=== PATIENT | female | born 1980 | race Caucasian/White ===

== ENCOUNTER 2016-05-12 15:55 | Emergency (ER) | payer OTHER ==
[~2016-05-12] VITALS: Ht 167.6 cm; Wt 95.3 kg
[~2016-05-12 15:55] MED LIST: Inhaler; azo
[2016-05-12 16:16] VITALS: BP 126/82
--- NOTE | 2016-05-12 19:36 | NUR ---
PT TAKEN TO OF
--- NOTE | 2016-05-12 19:47 | NUR ---
35 Y/O HERE C/O DISCONFORT AND REDNESS TO L EYE X 2 DAYS. DERNIES ANY INJURY TO AFFECTED EYE. NO DISCHARGE PRESENT ONLY REDNESS, DENIES ANY PAIN. ER MD AWARED OF IT.
--- NOTE | 2016-05-12 20:09 | NUR ---
Dr. Crawford evaluating patient
[2016-05-12 20:23] VITALS: BP 118/66
--- NOTE | 2016-05-12 20:23 | NUR ---
Patient discharged with v/s stable. Written and verbal after care instructions given and explained. Patient alert, oriented and verbalized understanding of instructions. Ambulatory with steady gait. All questions addressed prior to discharge. ID band removed. Patient advised to follow up with PMD. Rx of VISINE ADVANCED RELIEF OPHTHALMIC SOLUTION given. Patient educated on indication of medication including possible reaction and side effects. Opportunity to ask questions provided and answered.
== END 2016-05-12 20:23 | disposition home or self-care (01) ==
LOC: MED 15:55
DX: H11.31 Conjunctival hemorrhage, right eye (principal); J45.909 Unspecified asthma, uncomplicated

== ENCOUNTER 2016-06-17 23:46 | Emergency (ER) | payer OTHER ==
[~2016-06-17] VITALS: Ht 167.6 cm; Wt 99.8 kg
[2016-06-17 23:48] VITALS: BP 139/81
--- NOTE | 2016-06-17 23:58 | NUR ---
Patient ambulated to bed 02.
--- NOTE | 2016-06-17 23:59 | NUR ---
PATIENT PRESENTS TO ED WITH HIGH BP X 1 DAY WITH C/O DIZZINESS . PT DENIES N/V/D; SKIN IS PINK/WARM/DRY; AAOX4 WITH EVEN AND STEADY GAIT; LUNGS CLEAR BL; HR EVEN AND REGULAR; PT DENIES ANY FEVER, CP, SOB, OR COUGH AT THIS TIME; PATIENT STATES PAIN OF 10/10 AT THIS TIME; VSS; PATIENT POSITIONED FOR COMFORT; HOB ELEVATED; BEDRAILS UP X2; BED DOWN. ER MD MADE AWARE OF PT STATUS.
--- NOTE | 2016-06-18 | NUR ---
Dr. White evaluating patient at bedside.
[2016-06-18] MEDS ORDERED: NACL 0.9% 1,000 ML IV SCH (00:04)
[2016-06-18] MEDS ORDERED: ONDANSETRON 4 MG/2 ML VIAL IVP ONE (00:05)
[2016-06-18] MEDS ORDERED: ACETAMINOPHEN EXTRA STRENGTH 500 MG TAB PO ONE (00:05)
--- NOTE | 2016-06-18 00:12 | NUR ---
LAB at bedside.
--- NOTE | 2016-06-18 01:19 | NUR ---
IV removed, catheter intact and site benign. Applied folded 4x4 gauze and tape to stop bleeding.
[2016-06-18 01:20] VITALS: BP 124/79
--- NOTE | 2016-06-18 01:20 | NUR ---
Patient discharged with v/s stable. Written and verbal after care instructions given and explained. Patient alert, oriented and verbalized understanding of instructions. Ambulatory with steady gait. All questions addressed prior to discharge. ID band removed. Patient advised to follow up with PMD. Rx of KEFLEX 500MG AND TYLENOL 325MG given. Patient educated on indication of medication including possible reaction and side effects. Opportunity to ask questions provided and answered.
== END 2016-06-18 01:20 | disposition home or self-care (01) ==
LOC: MED 23:46
DX: G44.209 Tension-type headache, unspecified, not intractable (principal); F43.9 Reaction to severe stress, unspecified; N39.0 Urinary tract infection, site not specified; I10 Essential (primary) hypertension; J45.909 Unspecified asthma, uncomplicated
CPT/HCPCS: 36415; 80053; 81001; 81025; 82150; 83690; 85025; 87086; 96361; 96374; 99284; J2405; J7030

== ENCOUNTER 2017-02-19 22:36 | Emergency (ER) | payer OTHER ==
[~2017-02-19] VITALS: Ht 165.1 cm; Wt 78.5 kg
[2017-02-19 22:44] VITALS: BP 119/81
--- NOTE | 2017-02-19 22:49 | NUR ---
AMBULATED TO ER BED 3
--- NOTE | 2017-02-19 23:00 | NUR ---
36Y/F PRESENTS TO ER C/O URINARY HESITANCY. PMH FATTY LIVER, NKA. PT STATES SHE IS HAVING DIFFICULTY STARTING URINATION AND ONLY URINATES "A LITTLE BIT". PT DENIES PAIN, BURNING, BLOOD IN URINE, OR URGENCY. PT STATES SYMPTOMS STARTED TODAY. ABDOMEN IS ROUND, SOFT, TENDER ON PALPATION, BS ACTIVE X4. LBM WAS TODAY. PT IS IN BED, ER MD NOTIFED OF PT STATUS, COMFORT NEEDS MET AT THIS TIME. VSS, AA&O X4.
--- NOTE | 2017-02-19 23:02 | NUR ---
PT BEING EVALUATED BY DR. PARKER.
[2017-02-19] MEDS ORDERED: NACL 0.9% 1,000 ML IV ONE (23:05)
--- NOTE | 2017-02-19 23:15 | NUR ---
BLADDER SCAN AT BEDSIDE. LARGEST VOLUME NOTED 48 ML. PT TOLERATED WELL.
[2017-02-19 23:49] LABS: BASOPHILS # (AUTO) 0.4 K/uL (0.00-0.22); EOSINOPHILS # (AUTO) 0.3 K/uL (0-0.4); EOSINOPHILS % (AUTO) 3.3 % (0.0-4.0); HEMATOCRIT 39.4 % (36-48); HEMOGLOBIN 12.8 g/dL (12.0-16.0); LYMPHOCYTES # (AUTO) 2.6 K/uL (2.5-16.5); LYMPHOCYTES % (AUTO) 25.6 % (20.5-51.1); MEAN CORPUSCULAR HEMOGLOBIN 28 pg (27-31); MEAN CORPUSCULAR HGB CONC 33 g/dL (33-37); MEAN CORPUSCULAR VOLUME 86 fL (80-94); MONOCYTES # (AUTO) 0.9 K/uL (0.8-1.0); MONOCYTES % (AUTO) 9.3 % (1.7-9.3); NEUTROPHILS # (AUTO) 5.9 K/uL (1.8-7.7); NEUTROPHILS % (AUTO) 57.8 % (42.2-75.2); PLATELET COUNT (AUTO) 271 K/uL (140-450); RED BLOOD CELL COUNT(AUTO) 4.57 MIL/uL (4.20-5.40); RED CELL DISTRIBUTION WIDTH 13.3 % (11.6-13.7); WHITE BLOOD COUNT (AUTO) 10.1 K/uL (4.8-10.8)
[2017-02-19 23:51] LABS: APPEARANCE,URINE SL CLOUDY (CLEAR); BILIRUBIN,URINE NEGATIVE (NEGATIVE); BLOOD, URINE NEGATIVE (NEGATIVE); COLOR,URINE YELLOW (YELLOW); LEUKOCYTE ESTERASE ,URINE NEGATIVE (NEGATIVE); NITRITE, URINE NEGATIVE (NEGATIVE); UGLUCOSE NEGATIVE (NEGATIVE)
[2017-02-19 23:58] LABS: ANION GAP 13.5 (8-16); CARBON DIOXIDE 26.8 mmol/L (21-32); CREATININE 1.1 mg/dL (0.6-1.3); POTASSIUM 3.3 mmol/L (3.5-5.1)
[2017-02-20 00:01] LABS: RBC,URINE 0-5 (RARE) /HPF (0-5); WBC,URINE 0-5 (RARE) /HPF (0-5)
[2017-02-20 00:04] LABS: ALBUMIN 3.8 g/dL (3.4-5.0); TOTAL BILIRUBIN 0.2 mg/dL (0.0-1.0)
--- NOTE | 2017-02-20 00:40 | NUR ---
Patient discharged with v/s stable. Written and verbal after care instructions given and explained. Patient verbalized understanding. Ambulatory with steady gait. All questions addressed prior to discharge. Advised to follow up with PMD.
[2017-02-20 00:41] VITALS: BP 114/73
== END 2017-02-20 00:35 | disposition home or self-care (01) ==
LOC: MED 22:36
DX: E86.0 Dehydration (principal); J45.909 Unspecified asthma, uncomplicated; I10 Essential (primary) hypertension
CPT/HCPCS: 36415; 80053; 81001; 81025; 85025; 96360; 99285; J7030

== ENCOUNTER 2017-06-01 09:37 | Emergency (ER) | payer OTHER ==
[~2017-06-01] VITALS: Ht 165.1 cm; Wt 79.8 kg
[2017-06-01 10:52] VITALS: BP 136/93
--- NOTE | 2017-06-01 10:58 | NUR ---
AFTER PROVIDING URINE SAMPLE PT AMBULATES BACK TO THE LOBBY WITH SON
--- NOTE | 2017-06-01 12:16 | NUR ---
PT COMES TO ER WITH C/O LOWER ABD PAIN WITH NAUSEA AND GENERALIZED MALAISE. REPORTS HAVING AHYSTERECTOMY MANY YEARS AGO AND SUDDENLY HAD A MILD PERIOD THISD LAST WEEK, ONLY VAG BLEEDING WITH WIPING. DENIES ANY FEVERS/DYSURIA. URINE COLLECTED, WAIITNG FOR ER MD GRIFFIN. ABD SOFT, DENIES CONSTIPATION.
--- NOTE | 2017-06-01 12:55 | NUR ---
DR BORDEN AT BEDSIDE FOR EXAM
[2017-06-01 14:26] VITALS: BP 130/79
== END 2017-06-01 14:27 | disposition home or self-care (01) ==
LOC: MED 09:37
DX: N93.9 Abnormal uterine and vaginal bleeding, unspecified (principal); R10.9 Unspecified abdominal pain; J45.909 Unspecified asthma, uncomplicated; I10 Essential (primary) hypertension
CPT/HCPCS: 81002; 81025; 99282

== ENCOUNTER 2017-10-15 11:11 | Inpatient (IN) | payer OTHER ==
[~2017-10-15] VITALS: Ht 167.6 cm; Wt 80.7 kg
[2017-10-15 11:14] VITALS: BP 107/60
--- NOTE | 2017-10-15 11:20 | NUR ---
pt ambulates w/ steady gait to bed 12 at this time.
--- NOTE | 2017-10-15 11:23 | NUR ---
37 yo f bib self w/ c/o diarrhea, headache, gen body pain, fever x 3 days. Pt is ambulatory w/ steady gait. aaox4. gcs 15. cms intact. rr even and unlabored. lung harvey bilaterally clear. abd soft, non-tender. er md notified. pt needs met. safety precautions in place. will continue to monitor.
--- NOTE | 2017-10-15 11:25 | NUR ---
pt ambulates with steady gait to the restroom at this time abruptly w/ diarrhea complaint.
--- NOTE | 2017-10-15 11:33 | NUR ---
pt ambulates to bed 12 at this time with steady gait from the restroom.
[2017-10-15] MEDS ORDERED: NACL 0.9% 1,000 ML IV SCH ×2 (11:38→11:40)
[2017-10-15] MEDS ORDERED: metroNIDAZOLE 500 MG/NS PREMIX 100 ML IV STA (11:40)
[2017-10-15] MEDS ORDERED: GLYCOPYRROLATE 0.2 MG/ML VIAL IV ONE (11:40)
[2017-10-15] MEDS ORDERED: LEVOFLOXACIN 500 MG/D5W PREMIX 100 ML IV ONE (11:40)
[2017-10-15] MEDS ORDERED: MORPHINE SULFATE 2 MG/ML SYR IVP ONE (11:40)
[2017-10-15] MEDS ORDERED: DIPHENOXYLATE /ATROPINE 2.5 MG TAB PO ONE (11:40)
[2017-10-15] MEDS ORDERED: KETOROLAC 30 MG/ML VIAL IVP ONE (11:40)
[2017-10-15 11:58] LABS: BASOPHILS % (AUTO) 0.1 % (0.0-2.0); EOSINOPHILS % (AUTO) 0.1 % (0.0-4.0); HEMATOCRIT 32.6 % (36-48); HEMOGLOBIN 10.4 g/dL (12.0-16.0); LYMPHOCYTES # (AUTO) 0.6 K/uL (2.5-16.5); LYMPHOCYTES % (AUTO) 6.5 % (20.5-51.1); MEAN CORPUSCULAR HEMOGLOBIN 26 pg (27-31); MEAN CORPUSCULAR HGB CONC 32 g/dL (33-37); MEAN CORPUSCULAR VOLUME 82.1 fL (80-94); MONOCYTES # (AUTO) 0.7 K/uL (0.8-1.0); MONOCYTES % (AUTO) 7.3 % (1.7-9.3); NEUTROPHILS # (AUTO) 8.5 K/uL (1.8-7.7); PLATELET COUNT (AUTO) 220 K/uL (140-450); RED BLOOD CELL COUNT(AUTO) 3.97 MIL/uL (4.20-5.40); RED CELL DISTRIBUTION WIDTH 15.4 % (11.6-13.7); WHITE BLOOD COUNT (AUTO) 9.9 K/uL (4.8-10.8)
[2017-10-15 12:14] LABS: ANION GAP 9.9 (8-16); CARBON DIOXIDE 26.9 mmol/L (21-32); CREATININE 0.8 mg/dL (0.6-1.3); POTASSIUM 3.8 mmol/L (3.5-5.1)
[2017-10-15 12:19] LABS: ALBUMIN 3.3 g/dL (3.4-5.0); TOTAL BILIRUBIN 0.3 mg/dL (0.0-1.0)
--- NOTE | 2017-10-15 12:30 | NUR ---
pt to ct scan at this time via [facility].
--- NOTE | 2017-10-15 12:43 | NUR ---
pt back from ct scan at this time via [facility].
--- NOTE | 2017-10-15 12:49 | NUR ---
Reminded pt about giving a urine sample again at this time. Still unable to attain urine. Pt states that she "cannot go". Will re-evaluate.
--- NOTE | 2017-10-15 13:10 | NUR ---
PATIENT PROVIDED URINE SAMPLE.
--- NOTE | 2017-10-15 14:00 | NUR ---
Patient appears to be resting comfortably in bed. Vital Signs within normal limits. Respirations even and unlabored.
[2017-10-15] MEDS ORDERED: NACL 0.9% 1,000 ML IV ONE (14:15)
--- NOTE | 2017-10-15 15:00 | NUR ---
Patient appears to be resting comfortably in bed. Vital Signs within normal limits. Respirations even and unlabored.
[2017-10-15 15:21] LABS: APPEARANCE,URINE CLEAR (CLEAR); BILIRUBIN,URINE NEGATIVE (NEGATIVE); BLOOD, URINE NEGATIVE (NEGATIVE); COLOR,URINE YELLOW (YELLOW); LEUKOCYTE ESTERASE ,URINE NEGATIVE (NEGATIVE); NITRITE, URINE NEGATIVE (NEGATIVE); UGLUCOSE NEGATIVE (NEGATIVE)
[2017-10-15] MEDS ORDERED: ACETAMINOPHEN 325 MG TAB PO PRN (17:15)
[2017-10-15] MEDS ORDERED: ONDANSETRON 4 MG/2 ML VIAL IVP PRN (17:15)
[2017-10-15] MEDS ORDERED: MORPHINE SULFATE 2 MG/ML SYR IVP PRN (17:15)
--- NOTE | 2017-10-15 18:03 | NUR ---
Patient will be admitted to care of dr. logan. Admited to med surg. Will go to room 116. Belongings list completed. Report to gera hooker.
--- NOTE | 2017-10-15 18:07 | NUR ---
RECEIVED PT FROM ER NURSE NEVILLE, V/S TAKEN BP: 116/62, HR: 83, RR 16, TEMP: 99.1, O2SAT 100%, PAIN 7/10 PT STATES SLIGHT HEADACHE. MRSA SEND TO LAB, EXPLAINED PLAN OF CARE, UPDATED BOARD, WILL ENDORSE ADMISSION TO SECURITY AND PRIVACY CONSULTANT NURSE.
--- NOTE | 2017-10-15 19:25 | NUR ---
ENDORSED PT TO MACHINERY ERECTOR NURSE. PT STABLE.
--- NOTE | 2017-10-15 19:25 | NUR ---
RECEIVED REPORT FROM DAY SHIFT NURSE AT BEDSIDE. PT IN STABLE CONDITION. IV ACCESS IN L AC 20G/ IV PATENT AND INTACT. PT ON RA. SKIN IS INTACT. PT HAS NO C/O OF PAIN AT THIS TIME. WILL BEGIN PT ADMISSION.
[2017-10-15 19:30] VITALS: BP 117/63
[2017-10-15] MEDS: NACL 0.9% 1,000 ML IV SCH (19:51)
--- NOTE | 2017-10-15 19:52 | NUR ---
STARTED ORDERED IV FLUIDS. INFORMED PT DR REQUESTING STOOL SAMPLE. PT WILL NOTIFY NURSE WHEN SAMPLE AVAILABLE.
[2017-10-15] MEDS: metroNIDAZOLE 500 MG/NS PREMIX 100 ML IV SCH (21:38)
--- NOTE | 2017-10-15 21:38 | NUR ---
ADMINISTERED NIGHT TIME MEDICATION. PT TOLERATING WELL. PT HAS NO C/O PAIN AT THIS TIME. WILL CONTINUE TO MONITOR.
--- NOTE | 2017-10-15 23:15 | NUR ---
PT RESTING IN BED WATCHING TV. ALL NEEDS ARE MET AT THIS TIME. WILL CONTINUE TO MONITOR.
[2017-10-16] VITALS: BP 102/62
--- NOTE | 2017-10-16 01:25 | NUR ---
PT IS ASLEEP IN BED. NO S/SX OF DISTRESS. WILL CONTINUE TO MONITOR.
[2017-10-16] MEDS: NACL 0.9% 1,000 ML IV SCH ×2 (03:11→06:03)
--- NOTE | 2017-10-16 03:38 | NUR ---
NO CHANGE IN CONDITION. WILL CONTINUE TO MONITOR PT.
[2017-10-16] MEDS: metroNIDAZOLE 500 MG/NS PREMIX 100 ML IV SCH ×2 (04:50→12:13)
--- NOTE | 2017-10-16 04:50 | NUR ---
UT RECEIVING MORNING ABX. PT TOLERATING WELL. PT NEEDS ARE ALL MET AT THIS TIME. WILL CONTINUE TO MONITOR.
--- NOTE | 2017-10-16 07:15 | NUR ---
ENDORSED PT TO DAY SHIFT NURSE AT BEDSIDE FOR CONTINUITY OF CARE. PT IN STABLE CONDITION.
--- NOTE | 2017-10-16 07:17 | NUR ---
RECEIVED REPORT FROM TRAVEL INSURANCE AGENT RN. PATIENT IS RESTING IN BED, AROUSABLE BY VOICE. DENIES PAIN, DIARRHEA, NAUSEA, AND VOMITING AT THIS TIME. WILL COLLECT STOOL SAMPLE WHEN AVAILABLE. SKIN IS INTACT. PT IS AMBULATORY. SCD IN PLACE. LUNGS CTA IN ALL OLVERA. HEART RHYTHM IS REGULAR. BOWEL SOUNDS PRESENT IN ALL QUADRANTS. IV SITE PATENT AND RUNNING IVF PER MD ORDERS. ALL SAFETY MEASURES IN PLACE, WILL CONTINUE TO MONITOR.
[2017-10-16 08:00] VITALS: BP 102/56
[2017-10-16 08:04] LABS: HEMATOCRIT 27.4 % (36-48); HEMOGLOBIN 8.8 g/dL (12.0-16.0); MEAN CORPUSCULAR HEMOGLOBIN 26 pg (27-31); MEAN CORPUSCULAR HGB CONC 32 g/dL (33-37); MEAN CORPUSCULAR VOLUME 82.7 fL (80-94); PLATELET COUNT (AUTO) 154 K/uL (140-450); RED BLOOD CELL COUNT(AUTO) 3.31 MIL/uL (4.20-5.40); RED CELL DISTRIBUTION WIDTH 15.5 % (11.6-13.7)
[2017-10-16 08:17] LABS: ALBUMIN 2.6 g/dL (3.4-5.0); ANION GAP 13.1 (8-16); CARBON DIOXIDE 22.3 mmol/L (21-32); CREATININE 0.7 mg/dL (0.6-1.3); POTASSIUM 3.4 mmol/L (3.5-5.1); TOTAL BILIRUBIN 0.2 mg/dL (0.0-1.0)
[2017-10-16 08:33] LABS: EOSINOPHILS % (MANUAL) 2 % (0-4); LYMPHOCYTES % (MANUAL) 15 % (20-46); MONOCYTES % (MANUAL) 12 % (5-12)
[2017-10-16] MEDS ORDERED: ENOXAPARIN 40 MG/0.4 ML SYR SUBQ SCH (09:00)
--- NOTE | 2017-10-16 09:07 | NUR ---
SCHEDULED MEDICATIONS GIVEN PER MD ORDERS. PT IN STABLE CONDITION. NO COMPLAINTS OF PAIN OR NAUSEA. WILL CONTINUE TO MONITOR.
--- NOTE | 2017-10-16 09:09 | NUR ---
PATIENT HAS BEEN SCREENED AND CATEGORIZED MODERATE NUTRITION RISK. PATIENT WILL BE SEEN WITHIN 3-5 DAYS OF ADMISSION. 10/18/17 10/20/[address]
[2017-10-16] MEDS ORDERED: POTASSIUM CHLORIDE 10 MEQ TABER PO SCH (12:00)
--- NOTE | 2017-10-16 12:00 | NUR ---
PT HAD SMALL LOOSE BOWEL MOVEMENT. AMOUNT APPROXIMATELY 10 ML. SAMPLE SENT TO LAB FOR CDIFF TOX TESTING.
--- NOTE | 2017-10-16 12:13 | NUR ---
SCHEDULED ANTIBIOTICS ADMINISTERED AT THIS TIME. PT IN STABLE CONDITION, WILL CONTINUE TO MONITOR.
--- NOTE | 2017-10-16 13:26 | NUR ---
FAXED INITIAL REVIEW TO [facility] [phone] PHONE SHAYNE [phone]
--- NOTE | 2017-10-16 15:29 | NUR ---
PT IS RESTING IN BED, WATCHING TV. INQUIRING ABOUT PLAN OF CARE. EXPLAINED THAT WE ARE CURRENTLY WAITING FOR CDIFF TOXIN RESULTS TO GUIDE PLAN OF CARE. WILL CONTINUE TO MONITOR.
[2017-10-16 16:00] VITALS: BP 104/70
[2017-10-16] MEDS ORDERED: METR500T1 PO (16:27)
--- NOTE | 2017-10-16 18:05 | NUR ---
DISCHARGE INSTRUCTIONS, INCLUDING NEW PRESCRIPTIONS AND INSTRUCTIONS TO FOLLOW UP WITH PRIMARY CARE DR, COMMUNICATED TO PATIENT. MEDICATION TEACHING GIVEN. PT VERBALIZED COMPLETE UNDERSTANDING OF ALL DISCHARGE INSTRUCTIONS. ALL PERSONAL BELONGINGS ARE WITH PT. PATIENT IS WAITING FOR FAMILY MEMBER TO COME PICK HER UP FROM HOSPITAL.
--- NOTE | 2017-10-16 18:40 | NUR ---
PATIENT DISCHARGED FROM UNIT. ID BANDS WERE REMOVED. IV CANNULA REMOVED WITH MINIMAL BLOOD LOSS AND LUMEN COMPLETELY INTACT. PT IS IN STABLE CONDITION.
== END 2017-10-16 18:40 | disposition home or self-care (01) | DRG 249 ==
LOC: MED 11:11 → MTU 17:11
PROVIDERS: ADMIT Hospitalist; ATTEND Hospitalist
DX: K52.9 Noninfective gastroenteritis and colitis, unspecified (principal); E44.0 Moderate protein-calorie malnutrition; E86.0 Dehydration; J45.909 Unspecified asthma, uncomplicated; I10 Essential (primary) hypertension; D64.9 Anemia, unspecified; Z68.28 Body mass index [BMI] 28.0-28.9, adult
CPT/HCPCS: 36415; 80053; 81003; 82150; 83690; 84703; 85025; 87045; 87070; 87081; 96361; 96365; 96367; 96375; 99285; J1650; J1885; J1956; J2270; J3490; J7030

== ENCOUNTER 2018-03-08 23:38 | Emergency (ER) | payer OTHER ==
[~2018-03-08] VITALS: Ht 167.6 cm; Wt 81.6 kg
[2018-03-08 23:46] VITALS: BP 120/72
--- NOTE | 2018-03-08 23:55 | NUR ---
PT TO LOBBY VSS, EKG PERFORMED, ER MADE AWARE.
--- NOTE | 2018-03-09 00:10 | NUR ---
Called pt but no answer. PATIENT LEFT WITHOUT BEING SEEN BY DR. Crawford. NO FURTHER CARE PROVIDED FOR PATIENT.
--- NOTE | 2018-03-09 00:20 | NUR ---
Called pt again to be seen, but no answer.
--- NOTE | 2018-03-09 00:20 | NUR ---
Chas montejo in [facility] - 03/09/18 at 0022 by MEDSV PT TO ER BED 3
--- NOTE | 2018-03-09 00:39 | NUR ---
Pt still did not answer when called to be seen.
== END 2018-03-09 00:10 | disposition left against medical advice (07) ==
LOC: MED 23:38
DX: R07.9 Chest pain, unspecified (principal); R42 Dizziness and giddiness; R51 Headache; Z53.21 Procedure and treatment not carried out due to patient leaving prior to being seen by health care provider
CPT/HCPCS: 93005; 99281

== ENCOUNTER 2018-05-06 12:03 | Emergency (ER) | payer OTHER ==
[~2018-05-06] VITALS: Ht 160 cm; Wt 73.5 kg
[2018-05-06 12:12] VITALS: BP 121/85
--- NOTE | 2018-05-06 12:27 | NUR ---
bib self with c/o hematuria, nausea, and dysuria x 3 days. Patient denies any fever or v/d. SKIN IS PINK/WARM/DRY; AAOX4 WITH EVEN AND STEADY GAIT; LUNGS CLEAR BL; HR EVEN AND REGULAR; PT DENIES ANY FEVER, CP, SOB, OR COUGH AT THIS TIME; PATIENT STATES PAIN OF 8/10 AT THIS TIME; VSS; PATIENT POSITIONED FOR COMFORT; HOB ELEVATED; BEDRAILS UP X2; BED DOWN. ER MD MADE AWARE OF PT STATUS.
[2018-05-06] MEDS ORDERED: KETOROLAC 60 MG/2 ML VIAL IM ONE (13:05)
[2018-05-06 13:40] LABS: BASOPHILS % (AUTO) 0.3 % (0.0-2.0); EOSINOPHILS # (AUTO) 0.2 K/uL (0-0.4); EOSINOPHILS % (AUTO) 2.9 % (0.0-4.0); HEMOGLOBIN 12.4 g/dL (12.0-16.0); LYMPHOCYTES # (AUTO) 2.1 K/uL (2.5-16.5); MEAN CORPUSCULAR HEMOGLOBIN 30 pg (27-31); MEAN CORPUSCULAR HGB CONC 33 g/dL (33-37); MEAN CORPUSCULAR VOLUME 91.6 fL (80-94); MONOCYTES # (AUTO) 0.6 K/uL (0.8-1.0); NEUTROPHILS # (AUTO) 5.1 K/uL (1.8-7.7); NEUTROPHILS % (AUTO) 63.8 % (42.2-75.2); PLATELET COUNT (AUTO) 215 K/uL (140-450); RED BLOOD CELL COUNT(AUTO) 4.15 MIL/uL (4.20-5.40); RED CELL DISTRIBUTION WIDTH 13.3 % (11.6-13.7); WHITE BLOOD COUNT (AUTO) 8.1 K/uL (4.8-10.8)
[2018-05-06 13:48] VITALS: BP 128/85
--- NOTE | 2018-05-06 13:48 | NUR ---
Patient discharged with v/s stable. Written and verbal after care instructions given and explained. Patient alert, oriented and verbalized understanding of instructions. Ambulatory with steady gait. All questions addressed prior to discharge. ID band removed. Patient advised to follow up with PMD. Rx of PYRIDIUM 200MG, CIPRO 500MG AND MOTRIN 800MG given. Patient educated on indication of medication including possible reaction and side effects. Opportunity to ask questions provided and answered.
== END 2018-05-06 13:48 | disposition home or self-care (01) ==
LOC: MED 12:03
DX: N39.0 Urinary tract infection, site not specified (principal)
CPT/HCPCS: 36415; 81002; 81025; 85025; 87086; 96372; 99283; J1885

== ENCOUNTER 2018-05-16 22:42 | Emergency (ER) | payer OTHER ==
[~2018-05-16] VITALS: Ht 167.6 cm; Wt 81.6 kg
[2018-05-16 22:43] VITALS: BP 118/89
--- NOTE | 2018-05-16 22:47 | NUR ---
PT AMBULATORY TO ER LOBBY W/ STEADY GAIT IN STABLE CONDITION.
--- NOTE | 2018-05-16 22:56 | NUR ---
PT AMBULATED TO BED 7
--- NOTE | 2018-05-16 23:06 | NUR ---
37/F PRESENTS TO ED WITH DAUGHTER, C/O 11/13 "FULLNESS" ABD PAIN, STARTED ON L SIDED ABD PAIN X1 WEEK AND WITH WORSENING LOWER ABD PAIN X1 DAY. WAS DX WITH UTI 10 DAYS AGO, RX CIPRO AND PYRIDIUM (TAKEN TODAY WITH NO RELIEF). PT REPORTS URINARY FREQUENCY, DENIES BURNING DYSURIA. PT DENIES FEVER, N/V/D, OR CONSTIPATION. LBM TODAY, REPORTS SOFT STOOL X4. HX OVARIAN CYST, ANEMIA
--- NOTE | 2018-05-17 00:22 | NUR ---
Dr. Tilley evaluating patient at bedside.
[2018-05-17 00:38] VITALS: BP 122/67
--- NOTE | 2018-05-17 00:38 | NUR ---
Patient discharged with v/s stable. Written and verbal after care instructions given and explained. Patient alert, oriented and verbalized understanding of instructions. Ambulatory with steady gait. All questions addressed prior to discharge. ID band removed. Patient advised to follow up with PMD. Rx of MOTRIN, NORCO, BACTRIM given. Patient educated on indication of medication including possible reaction and side effects. Opportunity to ask questions provided and answered.
== END 2018-05-17 00:38 | disposition home or self-care (01) ==
LOC: MED 22:42
DX: N39.0 Urinary tract infection, site not specified (principal)
CPT/HCPCS: 81002; 81025; 87086; 99283

== ENCOUNTER 2018-06-10 14:44 | Emergency (ER) | payer OTHER ==
[~2018-06-10] VITALS: Ht 167.6 cm; Wt 8.2 kg
--- NOTE | 2018-06-10 14:45 | NUR ---
PAULINA JIMÉNEZ, CURRENTLY AWAITING BED
--- NOTE | 2018-06-10 14:46 | NUR ---
PT TAKEN TO BED 10 BY EMS CREW
[2018-06-10 14:51] VITALS: BP 116/77
--- NOTE | 2018-06-10 15:00 | NUR ---
37Y/F BIBA WITH C/O DIZZINESS X EARLIER TODAY , PALPITATIONS, 87 HEART BEAT AT THIS TIME, MID AB PAIN, BACK PAIN, LBM 06/10/18, ACTIVE BS X 4 QUAD, PT STATES SHE WAS AT WORK AND STARTED FEELING DIZZY. PT AAOX4, VSS AT THIS TIME, BEDRAIL UP X 1, ER MD AWARE AND NOTIFIED OF PT STATUS.
--- NOTE | 2018-06-10 15:24 | NUR ---
Patient being evaluated by DR. COHEN at bedside.
[2018-06-10 16:00] LABS: BASOPHILS % (AUTO) 0.2 % (0.0-2.0); EOSINOPHILS # (AUTO) 0.1 K/uL (0-0.4); EOSINOPHILS % (AUTO) 1.3 % (0.0-4.0); HEMATOCRIT 38.5 % (36-48); HEMOGLOBIN 12.6 g/dL (12.0-16.0); LYMPHOCYTES # (AUTO) 1.6 K/uL (2.5-16.5); LYMPHOCYTES % (AUTO) 17.4 % (20.5-51.1); MEAN CORPUSCULAR HEMOGLOBIN 30 pg (27-31); MEAN CORPUSCULAR HGB CONC 33 g/dL (33-37); MEAN CORPUSCULAR VOLUME 90.8 fL (80-94); MONOCYTES # (AUTO) 0.7 K/uL (0.8-1.0); MONOCYTES % (AUTO) 7.2 % (1.7-9.3); NEUTROPHILS # (AUTO) 6.7 K/uL (1.8-7.7); NEUTROPHILS % (AUTO) 73.9 % (42.2-75.2); PLATELET COUNT (AUTO) 208 K/uL (140-450); RED BLOOD CELL COUNT(AUTO) 4.25 MIL/uL (4.20-5.40); RED CELL DISTRIBUTION WIDTH 13.5 % (11.6-13.7); WHITE BLOOD COUNT (AUTO) 9.1 K/uL (4.8-10.8)
--- NOTE | 2018-06-10 16:47 | NUR ---
PT RESTING IN BED WITH DAUGHTER AT BEDSIDE
--- NOTE | 2018-06-10 17:38 | NUR ---
PT TO ER BED 2
[2018-06-10 17:49] LABS: ANION GAP 11.3 (8-16); CARBON DIOXIDE 28.5 mmol/L (21-32); CREATININE 0.7 mg/dL (0.6-1.3); POTASSIUM 3.8 mmol/L (3.5-5.1)
[2018-06-10 17:55] LABS: ALBUMIN 3.8 g/dL (3.4-5.0); TOTAL BILIRUBIN 0.4 mg/dL (0.0-1.0)
--- NOTE | 2018-06-10 18:04 | NUR ---
A&OX4, BREATHING EVEN AND UNLABORED, C/O PALPITATIONS AND DIZZINESS AFTER ARGUMENT AND "STRESS" FOOD SERVICES DIRECTOR. SYMPTOMS RESOLVED NOW. PT NSR ON MONITOR, LUNG SOUNDS CTAB.
[2018-06-10 18:12] VITALS: BP 112/77
--- NOTE | 2018-06-10 18:15 | NUR ---
IC D/CD WITH ANGIOCATH INTACT
== END 2018-06-10 18:14 | disposition home or self-care (01) ==
LOC: MED 14:44
DX: R55 Syncope and collapse (principal); F41.9 Anxiety disorder, unspecified; R10.30 Lower abdominal pain, unspecified
CPT/HCPCS: 36415; 80053; 81002; 81025; 84484; 85025; 93005; 99284

== ENCOUNTER 2018-07-21 23:08 | Emergency (ER) | payer OTHER ==
[~2018-07-21] VITALS: Ht 167.6 cm; Wt 81.2 kg
[2018-07-21 23:08] VITALS: BP 113/83
--- NOTE | 2018-07-21 23:08 | NUR ---
PATIENT BIB EMS TO ER BED 6.
--- NOTE | 2018-07-21 23:15 | NUR ---
37 YO F BIBA WITH C/O "RAPID HEART BEAT", GENERALIZED WEAKNESS, NAUSEA AND DIZZINESS STARTING AROUND 0900 THIS MORNING. BS ON SCENE: 66. PT WAS GIVEN 1 TUBE OF ORAL GLUCOSE. BS ON ARRIVAL: 89. PT DENIES HX OF DM OR ANY OTHER MEDICAL ISSUES. PT REPORTS FEELING NAUSEOUS AND SHAKEY AT THIS TIME. VSS. EKG: NSR. DENIES CHEST PAIN OR SOB. SKIN IS PINK, DRY, WARM. BREATHING IS EVEN, UNLABORED. PMH---TUBAL LIGATION, ENDOMETRIOSIS RX-- TOOK ASPIRIN YESTERDAY FOR CHEST DISCOMFORT. PT APPEARS MILDLY ANXIOUS, COOPERATIVE, BEHAVIOR APPROPRIATE. A/O X 4. NO ACUTE SIGNS OF DISTRESS. PT POSITIONED FOR COMFORT. HOB ELEVATED. SIDE RAIL UP X1. BED IN LOWEST POSITION.
[2018-07-21] MEDS ORDERED: ONDANSETRON 4 MG ODT PO ONE (23:45)
[2018-07-21] MEDS ORDERED: ACETAMINOPHEN EXTRA STRENGTH 500 MG TAB PO ONE (23:45)
--- NOTE | 2018-07-21 23:50 | NUR ---
LAB AT BEDSIDE.
--- NOTE | 2018-07-21 23:55 | NUR ---
XRAY AT BEDSIDE.
[2018-07-21 23:58] LABS: BASOPHILS % (AUTO) 0.2 % (0.0-2.0); EOSINOPHILS # (AUTO) 0.3 K/uL (0-0.4); EOSINOPHILS % (AUTO) 3.8 % (0.0-4.0); HEMATOCRIT 35.4 % (36-48); HEMOGLOBIN 11.9 g/dL (12.0-16.0); LYMPHOCYTES # (AUTO) 1.8 K/uL (2.5-16.5); LYMPHOCYTES % (AUTO) 20.2 % (20.5-51.1); MEAN CORPUSCULAR HEMOGLOBIN 31 pg (27-31); MEAN CORPUSCULAR HGB CONC 34 g/dL (33-37); MEAN CORPUSCULAR VOLUME 90.5 fL (80-94); MONOCYTES # (AUTO) 0.7 K/uL (0.8-1.0); MONOCYTES % (AUTO) 8.5 % (1.7-9.3); NEUTROPHILS # (AUTO) 5.9 K/uL (1.8-7.7); NEUTROPHILS % (AUTO) 67.3 % (42.2-75.2); PLATELET COUNT (AUTO) 223 K/uL (140-450); RED BLOOD CELL COUNT(AUTO) 3.91 MIL/uL (4.20-5.40); RED CELL DISTRIBUTION WIDTH 13.4 % (11.6-13.7); WHITE BLOOD COUNT (AUTO) 8.7 K/uL (4.8-10.8)
[2018-07-22 00:09] LABS: ANION GAP 9.7 (8-16); CARBON DIOXIDE 28.2 mmol/L (21-32); CREATININE 0.6 mg/dL (0.6-1.3); POTASSIUM 3.9 mmol/L (3.5-5.1)
[2018-07-22 00:15] LABS: ALBUMIN 3.4 g/dL (3.4-5.0); TOTAL BILIRUBIN 0.2 mg/dL (0.0-1.0)
[2018-07-22 00:22] LABS: CREATINE KINASE MB 0.8 ng/mL (0-3.6)
[2018-07-22 00:55] VITALS: BP 128/71
== END 2018-07-22 00:55 | disposition home or self-care (01) ==
LOC: MED 23:08
DX: E16.2 Hypoglycemia, unspecified (principal); R00.2 Palpitations; F41.9 Anxiety disorder, unspecified
CPT/HCPCS: 36415; 71045; 80053; 81002; 81025; 82550; 82553; 83690; 84484; 85025; 93005; 99284; Q0092; Q0162

== ENCOUNTER 2018-09-15 16:24 | Emergency (ER) | payer OTHER ==
[~2018-09-15] VITALS: Ht 167.6 cm; Wt 85.7 kg
[2018-09-15 16:34] VITALS: BP 109/66
--- NOTE | 2018-09-15 16:40 | NUR ---
ACCU CHECK 108, PERFORMED BY SHANTI LYNCH
--- NOTE | 2018-09-15 17:00 | NUR ---
PA [place] AT BEDSIDE
[2018-09-15] MEDS ORDERED: PROCHLORPERAZINE 10 MG/2 ML VIAL IVP ONE (17:05)
[2018-09-15] MEDS ORDERED: NACL 0.9% 1,000 ML IV ONE (17:05)
[2018-09-15] MEDS ORDERED: KETOROLAC 30 MG/ML VIAL IVP ONE (17:05)
--- NOTE | 2018-09-15 17:25 | NUR ---
lab at bedside
--- NOTE | 2018-09-15 17:26 | NUR ---
38 Y FEMALE C/O HEADACHE & BLURRY VISION & WEAKNESS & NAUSEA X 1 WEEK. PT DENIES VOMITING OR DIARRHEA. NEURO INTACT. PUPILS DARSHANA. PAIN 10/10 THROBBING. VSS AT THIS TIME. AA0X4. PT AMB TO BED WITHOUT ASSISTANCE, STEADY GAIT. BED IS DOWN, LOCKED, BED RAIL X 1, ERMD TO SEE PT. HX: NONE RX: NONE
[2018-09-15 17:37] LABS: BASOPHILS % (AUTO) 0.2 % (0.0-2.0); EOSINOPHILS # (AUTO) 0.2 K/uL (0-0.4); EOSINOPHILS % (AUTO) 2.7 % (0.0-4.0); HEMOGLOBIN 11.3 g/dL (12.0-16.0); LYMPHOCYTES % (AUTO) 29.3 % (20.5-51.1); MEAN CORPUSCULAR HEMOGLOBIN 31 pg (27-31); MEAN CORPUSCULAR HGB CONC 33 g/dL (33-37); MONOCYTES # (AUTO) 0.6 K/uL (0.8-1.0); NEUTROPHILS # (AUTO) 4.1 K/uL (1.8-7.7); NEUTROPHILS % (AUTO) 58.8 % (42.2-75.2); PLATELET COUNT (AUTO) 195 K/uL (140-450); RED BLOOD CELL COUNT(AUTO) 3.69 MIL/uL (4.20-5.40); RED CELL DISTRIBUTION WIDTH 13.1 % (11.6-13.7); WHITE BLOOD COUNT (AUTO) 6.9 K/uL (4.8-10.8)
[2018-09-15 18:02] LABS: ANION GAP 10.8 (8-16); CARBON DIOXIDE 27.2 mmol/L (21-32); CREATININE 0.6 mg/dL (0.6-1.3)
--- NOTE | 2018-09-15 18:02 | NUR ---
PT BEING TAKEN TO CT VIA [facility]
[2018-09-15 18:09] LABS: ALBUMIN 3.2 g/dL (3.4-5.0); TOTAL BILIRUBIN 0.2 mg/dL (0.0-1.0)
--- NOTE | 2018-09-15 18:18 | NUR ---
DR COHEN AT BEDSIDE
--- NOTE | 2018-09-15 18:18 | NUR ---
VSS AT THIS TIME. PT AA0X4. LIGHTS TURNED OFF FOR PT COMFORT
--- NOTE | 2018-09-15 18:45 | NUR ---
DR STALLWORTH AT [facility] Addendum: 09/15/18 at 1845 by [email or web address] Pamela ABRBA
[2018-09-15 18:53] VITALS: BP 122/77
== END 2018-09-15 18:53 | disposition home or self-care (01) ==
LOC: MED 16:24
DX: G43.909 Migraine, unspecified, not intractable, without status migrainosus (principal)
CPT/HCPCS: 36415; 70450; 80053; 81002; 81025; 82948; 85025; 96374; 96375; 99284; J0780; J1885; J7030

== ENCOUNTER 2018-10-26 04:33 | Emergency (ER) | payer OTHER ==
[~2018-10-26] VITALS: Ht 165.1 cm; Wt 72.6 kg
--- NOTE | 2018-10-26 04:38 | NUR ---
PT TAKEN TO BED 9
[2018-10-26 04:42] VITALS: BP 125/75
--- NOTE | 2018-10-26 04:43 | NUR ---
38 Y/O FEMALE PRESENTED TO ER, C/O POOR SLEEP AND ANXIETY. STATES SHE WOKE UP IN THE MIDDLE OF THE NIGHT WITH TREMORS AND FEELING COLD. PT TOOK 3 TABLETS OF MOTRIN AT 0400. PT HAS HX OF ANEMIA. NO KNOWN DRUG ALLERGIES. DR PARKER AWARE. WILL CONTINUE TO MONITOR.
--- NOTE | 2018-10-26 04:43 | NUR ---
PT AMBULATED TO ER BED #9
[2018-10-26] MEDS ORDERED: diphenhydrAMINE 50 MG/ML VIAL IM ONE (04:55)
[2018-10-26 05:30] VITALS: BP 124/74
--- NOTE | 2018-10-26 05:30 | NUR ---
Patient discharged with v/s stable. Written and verbal after care instructions given and explained. Patient alert, oriented and verbalized understanding of instructions. Ambulatory with steady gait. All questions addressed prior to discharge. ID band removed. Patient advised to follow up with PMD. Rx of BENADRYL given. Patient educated on indication of medication including possible reaction and side effects. Opportunity to ask questions provided and answered.
== END 2018-10-26 05:30 | disposition home or self-care (01) ==
LOC: MED 04:33
DX: G47.00 Insomnia, unspecified (principal); L50.9 Urticaria, unspecified; R03.0 Elevated blood-pressure reading, without diagnosis of hypertension
CPT/HCPCS: 96372; 99283; J1200

== ENCOUNTER 2018-10-26 11:00 | Emergency (ER) | payer OTHER ==
[~2018-10-26] VITALS: Ht 167.6 cm; Wt 81.2 kg
[2018-10-26 11:13] VITALS: BP 147/87
--- NOTE | 2018-10-26 11:40 | NUR ---
SEEN IN OUR ER LASTNIGHT FOR POSSIBLE ALLERGIC REACTION TO MOTRIN ---AWOKE THIS MORNING WTIH LOWER BACK PAIN RADIATING TOWARS FRONT 'ADMITS TO N/V---ALSO HAS HAD WATERY STOOLS X 5 DAYS NO BM YESTERDAY AND TODAY X1 PT DESCRIBES URINE TO FEEL HOT UPON MICTURATING
[2018-10-26] MEDS ORDERED: NACL 0.9% 1,000 ML IV SCH (12:31)
[2018-10-26] MEDS ORDERED: NACL 0.9% 1,000 ML IV ONE (12:31)
[2018-10-26] MEDS ORDERED: KETOROLAC 30 MG/ML VIAL IVP ONE (12:35)
[2018-10-26] MEDS ORDERED: ONDANSETRON 4 MG/2 ML VIAL IVP ONE (12:35)
[2018-10-26] MEDS ORDERED: diphenhydrAMINE 50 MG/ML VIAL IVP ONE (12:35)
[2018-10-26] MEDS ORDERED: DICYCLOMINE HCL LIQUID 10 MG/5 ML UDC PO ONE (12:35)
[2018-10-26 12:57] LABS: APPEARANCE,URINE CLEAR (CLEAR); BILIRUBIN,URINE NEGATIVE (NEGATIVE); BLOOD, URINE NEGATIVE (NEGATIVE); COLOR,URINE YELLOW (YELLOW); LEUKOCYTE ESTERASE ,URINE NEGATIVE (NEGATIVE); NITRITE, URINE NEGATIVE (NEGATIVE); UGLUCOSE NEGATIVE (NEGATIVE)
[2018-10-26 13:14] LABS: BASOPHILS % (AUTO) 0.2 % (0.0-2.0); EOSINOPHILS % (AUTO) 0.6 % (0.0-4.0); HEMATOCRIT 37.8 % (36-48); HEMOGLOBIN 12.6 g/dL (12.0-16.0); LYMPHOCYTES # (AUTO) 0.3 K/uL (2.5-16.5); LYMPHOCYTES % (AUTO) 4.2 % (20.5-51.1); MEAN CORPUSCULAR HEMOGLOBIN 31 pg (27-31); MEAN CORPUSCULAR HGB CONC 33 g/dL (33-37); MEAN CORPUSCULAR VOLUME 91.9 fL (80-94); MONOCYTES # (AUTO) 0.6 K/uL (0.8-1.0); MONOCYTES % (AUTO) 8.7 % (1.7-9.3); NEUTROPHILS # (AUTO) 5.8 K/uL (1.8-7.7); NEUTROPHILS % (AUTO) 86.3 % (42.2-75.2); PLATELET COUNT (AUTO) 163 K/uL (140-450); RED BLOOD CELL COUNT(AUTO) 4.12 MIL/uL (4.20-5.40); RED CELL DISTRIBUTION WIDTH 12.9 % (11.6-13.7); WHITE BLOOD COUNT (AUTO) 6.7 K/uL (4.8-10.8)
--- NOTE | 2018-10-26 13:16 | NUR ---
pt to ct via [facility]
[2018-10-26 13:29] LABS: BARBITURATE, URINE NEGATIVE ng/ml (NEG <=200); BENZODIAZEPINE, URINE NEGATIVE ng/mL (NEG <=200); CANNABINOID, URINE NEGATIVE ng/mL (NEG <=50); COCAINE, URINE NEGATIVE ng/mL (NEG <=300); OPIATE, URINE NEGATIVE ng/mL (NEG <=2000); PHENCYCLIDINE SCREEN,URINE NEGATIVE ng/mL (NEG <=25)
[2018-10-26 13:41] LABS: ANION GAP 13.1 (8-16); CARBON DIOXIDE 26.7 mmol/L (21-32); CHLORIDE 103 mmol/L (98-107); CREATININE 0.7 mg/dL (0.6-1.3); GFR ARICAN-AMERICAN 120 mL/min (>90); GLUCOSE 90 mg/dL (74-106); POTASSIUM 3.8 mmol/L (3.5-5.1); SODIUM SERUM 139 mmol/L (136-145); UREA NITROGEN, BLOOD 10 mg/dL (7-18)
[2018-10-26 13:55] LABS: ASPARTATE AMINOTRANSFERASE 34 U/L (15-37); TOTAL BILIRUBIN 0.5 mg/dL (0.0-1.0)
[2018-10-26 13:56] LABS: ALBUMIN 3.4 g/dL (3.4-5.0); AMYLASE 42 U/L (25-115); LIPASE 144 U/L (73-393)
[2018-10-26] MEDS ORDERED: ACETAMINOPHEN EXTRA STRENGTH 500 MG TAB PO ONE (14:05)
[2018-10-26] MEDS ORDERED: methylPREDNISolone SS 125 MG/2 ML VIAL IVP ONE (14:15)
[2018-10-26] MEDS ORDERED: cefTRIAXone 1,000 MG VIAL ONE (14:29)
[2018-10-26 15:34] VITALS: BP 107/59
--- NOTE | 2018-10-26 15:35 | NUR ---
Patient discharged with v/s stable. Written and verbal after care instructions given and explained. Patient alert, oriented and verbalized understanding of instructions. Ambulatory with steady gait. All questions addressed prior to discharge. ID band removed. Patient advised to follow up with PMD. Rx of flagyl given. Patient educated on indication of medication including possible reaction and side effects. Opportunity to ask questions provided and answered.
== END 2018-10-26 15:35 | disposition home or self-care (01) ==
LOC: MED 11:00
DX: K52.9 Noninfective gastroenteritis and colitis, unspecified (principal); N83.202 Unspecified ovarian cyst, left side; N83.201 Unspecified ovarian cyst, right side
CPT/HCPCS: 36415; 74176; 80053; 80305; 81003; 81025; 82150; 83690; 84703; 85025; 96361; 96365; 96375; 99284; G0482; J0696; J1885; J2405; J2930; J7030; J1200

== ENCOUNTER 2018-12-09 23:55 | Emergency (ER) | payer OTHER ==
[~2018-12-09] VITALS: Ht 165.1 cm; Wt 62.6 kg
[2018-12-10 00:10] VITALS: BP 118/75
[2018-12-10 01:17] VITALS: BP 124/75
== END 2018-12-10 01:22 | disposition home or self-care (01) ==
LOC: MED 23:55
DX: R07.89 Other chest pain (principal); Z98.51 Tubal ligation status
CPT/HCPCS: 71045; 93005; 99283; Q0092

== ENCOUNTER 2019-05-19 17:31 | Emergency (ER) | payer OTHER ==
[~2019-05-19] VITALS: Ht 170.2 cm; Wt 84.6 kg
[2019-05-19 17:55] VITALS: BP 114/82
--- NOTE | 2019-05-19 18:00 | NUR ---
PT TO X-RAY BY WHEELCHAIR
--- NOTE | 2019-05-19 18:11 | NUR ---
38 Y/O F C/O SOB, COUGH X 2 DAYS. PT LUNG SOUNDS CLEAR THROUGHOUT, OXYGEN LEVEL IS 100% ROOM AIR. PT COUGH IS NONPRODUCTIVE. PT STATES SHE HAS AN INHALER AT HOME SHE HAS USED, IT HAS NOT RELIEVED HER SYMPTOMS. PT POSITIONED TACO STEVENS. JV
--- NOTE | 2019-05-19 18:17 | NUR ---
FLU SWAB PERFORMED, SENT TO LAB.
--- NOTE | 2019-05-19 18:46 | NUR ---
PT RETURNED FROM X-RAY BY WHEELCHAIR
--- NOTE | 2019-05-19 19:10 | NUR ---
RECIVED REPORT FROM JUAN LYNCH. CONTINUATION OF CARE.
--- NOTE | 2019-05-19 19:12 | NUR ---
REPORT GIVEN TO SYED ROTH FOR CHANGE OF SHIFT.
--- NOTE | 2019-05-19 19:22 | NUR ---
PT RESTING IN BED EYES OPEN AND TALKING ON PHONE. PT AAO X 4. RESPIRATIONS ARE EVEN AND UNLABORED. NO SOB. O2SAT @ 98% ON RA. PT LUNG SOUNDS ARE CLEAR A/P BILAT. PT NOTED WITH DRY, NON-PRODUCTIVE COUGH. AFEBRILE. DENIES N/V/D. RESULTS PENDING FOR FLU.
[2019-05-19 20:14] LABS: APPEARANCE,URINE CLEAR (CLEAR); BILIRUBIN,URINE NEGATIVE (NEGATIVE); BLOOD, URINE 2+ (NEGATIVE); COLOR,URINE YELLOW (YELLOW); LEUKOCYTE ESTERASE ,URINE 1+ (NEGATIVE); NITRITE, URINE POSITIVE (NEGATIVE); PH,URINE 5.5 (5.0-9.0); UGLUCOSE NEGATIVE (NEGATIVE)
[2019-05-19 20:15] VITALS: BP 112/80
--- NOTE | 2019-05-19 20:25 | NUR ---
PT ELOPED FROM ER. PT AAO X 4. VSS. AMBULATORY WITH STEADY GAIT. NO SOB. RESPIRATIONS ARE EVEN AND UNLABORED. PT STATED,"I CAN'T WAIT HERE ANYMORE I HAVE TO GO TO WORK." PLACIDO MADE AWARE. Addendum: 05/19/19 at 2038 by [email or web address] *ID BAND REMOVED.
[2019-05-19 21:07] LABS: RBC,URINE 20-50 /HPF (0-5)
--- NOTE | 2019-05-22 15:46 | NUR ---
LATE ENTRY---RECEIVED POS URINE CULTURE. SHOWN TO DR PARKER. NO NEED FOR FURTHER TREATMENT AT THIS TIME.
== END 2019-05-19 20:25 | disposition home or self-care (01) ==
LOC: MED 17:31
DX: R30.0 Dysuria (principal); Z98.890 Other specified postprocedural states
CPT/HCPCS: 71046; 81001; 81025; 87086; 87186; 87804; 99284

== ENCOUNTER 2019-08-09 18:39 | Emergency (ER) | payer OTHER ==
[~2019-08-09] VITALS: Ht 165.1 cm; Wt 83.9 kg
--- NOTE | 2019-08-09 18:44 | NUR ---
PT AMBULATED TO ROOM 7
[2019-08-09 18:49] VITALS: BP 119/85
--- NOTE | 2019-08-09 18:56 | NUR ---
38 Y/O FEMALE PRESENTS WITH CHEST PAIN BEGINNING YEST AT 2PM WHILE AT REST, 7/10 CHEST PAIN, SHARP, RADIATING SLIGHTLY TO BACK. DENIES ANY N/V/D. DENIES ANY SOB. VSS. AAOX4. SKIN COOL/DRY. CAP REFILL <3. RESP EVEN AND UNLABORED. LUNG SOUNDS CLEAR IN BILAT LOBES. BOWEL SOUNDS NORMOACTIVE. PMH: ASTHMA NKA
--- NOTE | 2019-08-09 19:15 | NUR ---
REPORT RECEIVED FROM JUJU RN, TRANSFER OF CARE AT THIS TIME. PATIENT ALERT AND AWAKE, BREATHING EVEN AND UNLABORED
--- NOTE | 2019-08-09 19:30 | NUR ---
PT STATES CHEST PAIN NOT PRESENT AT THIS TIME
[2019-08-09 19:55] LABS: BASOPHILS % (AUTO) 0.2 % (0.0-2.0); EOSINOPHILS # (AUTO) 0.1 K/uL (0-0.4); EOSINOPHILS % (AUTO) 2.1 % (0.0-4.0); HEMATOCRIT 37.6 % (36-48); HEMOGLOBIN 12.5 g/dL (12.0-16.0); LYMPHOCYTES # (AUTO) 2.1 K/uL (2.5-16.5); MEAN CORPUSCULAR HEMOGLOBIN 31 pg (27-31); MEAN CORPUSCULAR HGB CONC 33 g/dL (33-37); MEAN CORPUSCULAR VOLUME 94.6 fL (80-94); MONOCYTES # (AUTO) 0.6 K/uL (0.8-1.0); MONOCYTES % (AUTO) 9.3 % (1.7-9.3); NEUTROPHILS % (AUTO) 58.4 % (42.2-75.2); PLATELET COUNT (AUTO) 209 K/uL (140-450); RED BLOOD CELL COUNT(AUTO) 3.98 MIL/uL (4.20-5.40); RED CELL DISTRIBUTION WIDTH 13.1 % (11.6-13.7); WHITE BLOOD COUNT (AUTO) 6.9 K/uL (4.8-10.8)
[2019-08-09 20:30] LABS: ALBUMIN 3.5 g/dL (3.4-5.0); ANION GAP 11.8 (8-16); CARBON DIOXIDE 27.3 mmol/L (21-32); CREATININE 0.8 mg/dL (0.6-1.3); POTASSIUM 4.1 mmol/L (3.5-5.1); THYROID STIMULATING HORMONE 2.51 uIU/mL (0.34-3.74); TOTAL BILIRUBIN 0.2 mg/dL (0.0-1.0)
[2019-08-09 20:55] VITALS: BP 119/77
--- NOTE | 2019-08-09 20:55 | NUR ---
Patient discharged with v/s stable. Written and verbal after care instructions about chest pain (nonspecific) and palpitations given and explained. Patient verbalized understanding. Ambulatory with steady gait. All questions addressed prior to discharge. Advised to follow up with PMD.
== END 2019-08-09 20:55 | disposition home or self-care (01) ==
LOC: MED 18:39
DX: R07.9 Chest pain, unspecified (principal); R00.2 Palpitations; J45.909 Unspecified asthma, uncomplicated
CPT/HCPCS: 36415; 71045; 80053; 84443; 84484; 84702; 85025; 93005; 99285

== ENCOUNTER 2019-08-31 16:25 | Emergency (ER) | payer OTHER ==
[~2019-08-31] VITALS: Ht 167.6 cm; Wt 83.0 kg
[2019-08-31 16:34] VITALS: BP 111/72
--- NOTE | 2019-08-31 16:44 | NUR ---
WAIT AT LOBBY. HANDED ON URINE CUP.
--- NOTE | 2019-08-31 18:04 | NUR ---
PT AMB TO [facility]
--- NOTE | 2019-08-31 18:12 | NUR ---
ERICH GUARDADO AT BEDSIDE
[2019-08-31] MEDS ORDERED: NACL 0.9% 1,000 ML IV SCH (18:16)
--- NOTE | 2019-08-31 18:31 | NUR ---
PT MOVED TO BED 07
--- NOTE | 2019-08-31 18:32 | NUR ---
38 Y/O FEMALE FROM HOME C/O SYNCOPE AT 0400 TODAY WHEN GOING TO RESTROOM. PT STATES SHE FELT DIZZY AND THEN HAD 1 EPISODE OF SYNCOPE . SPOKE TO PRIMARY CARE PHYSICIAN AND WAS TOLD TO COME TO ER. DENIES BLURRED VISION/HEADACHE. RR EVEN AND UNLABORED.
--- NOTE | 2019-08-31 18:34 | NUR ---
PT MOVED TO BED 7 FOR FURTHER CARE
--- NOTE | 2019-08-31 19:11 | NUR ---
Pt report RECEIVED FROM SYED RIDER . Transfer of care at this time.
[2019-08-31 19:13] LABS: BASOPHILS % (AUTO) 0.2 % (0.0-2.0); EOSINOPHILS # (AUTO) 0.2 K/uL (0-0.4); EOSINOPHILS % (AUTO) 1.9 % (0.0-4.0); HEMATOCRIT 38.6 % (36-48); HEMOGLOBIN 12.9 g/dL (12.0-16.0); LYMPHOCYTES # (AUTO) 2.4 K/uL (2.5-16.5); LYMPHOCYTES % (AUTO) 29.1 % (20.5-51.1); MEAN CORPUSCULAR HEMOGLOBIN 32 pg (27-31); MEAN CORPUSCULAR HGB CONC 33 g/dL (33-37); MEAN CORPUSCULAR VOLUME 94.4 fL (80-94); MONOCYTES # (AUTO) 0.7 K/uL (0.8-1.0); MONOCYTES % (AUTO) 7.9 % (1.7-9.3); NEUTROPHILS % (AUTO) 60.9 % (42.2-75.2); PLATELET COUNT (AUTO) 212 K/uL (140-450); RED BLOOD CELL COUNT(AUTO) 4.09 MIL/uL (4.20-5.40); RED CELL DISTRIBUTION WIDTH 12.7 % (11.6-13.7); WHITE BLOOD COUNT (AUTO) 8.2 K/uL (4.8-10.8)
[2019-08-31 19:19] LABS: ANION GAP 13.7 (8-16); CARBON DIOXIDE 26.1 mmol/L (21-32); CREATININE 0.9 mg/dL (0.6-1.3); POTASSIUM 3.8 mmol/L (3.5-5.1)
--- NOTE | 2019-08-31 19:35 | NUR ---
PA. GUARDADO AT BEDSIDE
[2019-08-31 19:36] LABS: ALBUMIN 3.7 g/dL (3.4-5.0); TOTAL BILIRUBIN 0.3 mg/dL (0.0-1.0)
--- NOTE | 2019-08-31 19:40 | NUR ---
PT SITTING UP IN BED IN POSITION OF COMFORT, BED LOW AND LOCKED, 2 SIDERAIS UP, VSS, WILL CONTINUE TO MONITOR
[2019-08-31 19:45] VITALS: BP 111/74
== END 2019-08-31 19:45 | disposition home or self-care (01) ==
LOC: MED 16:25
DX: R42 Dizziness and giddiness (principal); J45.909 Unspecified asthma, uncomplicated
CPT/HCPCS: 36415; 80053; 81025; 84484; 85025; 93005; 99284; J7030

== ENCOUNTER 2020-01-09 05:15 | Emergency (ER) | payer OTHER ==
[~2020-01-09] VITALS: Ht 167.6 cm; Wt 84.5 kg
[2020-01-09 05:29] VITALS: BP 136/85
--- NOTE | 2020-01-09 05:35 | NUR ---
PT TAKEN TO BED 3
--- NOTE | 2020-01-09 05:43 | NUR ---
Dr. Barrett examining patient.
--- NOTE | 2020-01-09 05:44 | NUR ---
PT BIB SELF C/O INCREASED PHLEM FEELING LIKE "SOMETHING IN THROAT" AND INCREASE IN SEASONAL ALLERGIES X1 MONTH. PT RR EVEN AND NON-LABORED, BREATH SOUNDS CLEAR THROUGHOUT, SPEAKING IN FULL/COMPLETE SENTENCES, COLOW WNL. PT DENIES CP, SOB, FEVER, N/V. PT SEEN BY PCP AND TX WITH AZITHROMYCIN. DR PARKER AT BEDSIDE
--- NOTE | 2020-01-09 06:03 | NUR ---
Patient discharged with v/s stable. Written and verbal after care instructions given and explained. Patient alert, oriented and verbalized understanding of instructions. Ambulatory with steady gait. All questions addressed prior to discharge. ID band removed. Patient advised to follow up with PMD. Rx of SUDAFED AND PREDNISONE given. Patient educated on indication of medication including possible reaction and side effects. Opportunity to ask questions provided and answered.
== END 2020-01-09 06:03 | disposition home or self-care (01) ==
LOC: MED 05:15
DX: J45.909 Unspecified asthma, uncomplicated (principal); R03.0 Elevated blood-pressure reading, without diagnosis of hypertension
CPT/HCPCS: 99283